=== PATIENT | female | born 1935 | race Caucasian/White ===

== ENCOUNTER 2017-03-16 11:24 | Emergency (ER) | payer OTHER, MEDICARE ==
[2017-03-16] MEDS ORDERED: ACETAMINOPHEN 325 MG TABLET PO ONE (11:43)
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
== END 2017-03-16 12:16 | disposition home or self-care (01) ==
LOC: ER 11:24
DX: S70.02XA Contusion of left hip, initial encounter (principal); V48.5XXA Car driver injured in noncollision transport accident in traffic accident, initial encounter; Y92.410 Unspecified street and highway as the place of occurrence of the external cause; I50.9 Heart failure, unspecified; Z79.899 Other long term (current) drug therapy; Z79.01 Long term (current) use of anticoagulants; Z74.3 Need for continuous supervision
CPT/HCPCS: 99283; A0425; A0429

== ENCOUNTER 2017-03-21 09:42 | Inpatient (IN) | payer OTHER, MEDICARE ==
[2017-03-21 10:24] LABS: BASOPHIL# 0.1 X 10^3uL (0.0-0.1); BASOPHILS 0.7 % (0.0-2.0); EOSINOPHILS 0.2 % (0.0-6.0); HEMATOCRIT 42.3 % (36.0-48.0); HEMOGLOBIN 13.8 g/dL (12.0-16.0); LYMPHOCYTES 12.5 % (20.0-40.0); LYMPHOCYTES# 1.2 X 10^3uL (0.8-3.8); MEAN CELL VOLUME 77.5 fL (80.0-100.0); MEAN CORPUS. HGB CONCENTRATION 32.5 g/dL (32.0-36.0); MEAN CORPUSCULAR HEMOGLOBIN 25.2 pg (29.0-35.0); MEAN PLATELET VOLUME 8.6 fL (7.4-10.4); MONOCYTES 6.9 % (2.0-10.0); MONOCYTES# 0.7 X 10^3uL (0.2-1.0); NEUTROPHILS 79.7 % (54.0-75.0); NEUTROPHILS# 7.8 X 10^3uL (2.6-6.7); PLATELET COUNT 241 X 10^3uL (130-440); RED BLOOD COUNT 5.46 X 10^6uL (4.20-6.10); WHITE BLOOD COUNT 9.8 X 10^3uL (3.9-10.7)
[2017-03-21 10:35] LABS: ALBUMIN 3.7 g/dL (3.5-5.0); ALKALINE PHOSPHATASE 118 U/L (38-126); ALT 26 U/L (9-52); AST 17 U/L (14-36); BILIRUBIN, TOTAL 0.7 mg/dL (0.2-1.3); BLOOD UREA NITROGEN 13 mg/dL (7-17); CALCIUM 9.7 mg/dL (8.4-10.2); CHLORIDE 107 mmol/L (98-107); GLUCOSE 117 mg/dL (70-100); POTASSIUM 3.2 mmol/L (3.5-5.1); SODIUM 144 mmol/L (137-145)
[2017-03-21 10:36] LABS: TOTAL PROTEIN 7.4 g/dL (6.3-8.2)
[2017-03-21 10:41] LABS: RED CELL DISTRIBUTION WIDTH 13.5 % (11.5-14.5)
[2017-03-21 10:42] LABS: INR 4.6
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
[2017-03-21] MEDS ORDERED: HOME MEDICATION LIST NEEDED 1 EA EACH MC ONE (10:54)
[2017-03-21] MEDS ORDERED: POTASSIUM CHLORIDE/NS 1,000 ML IV SCH (11:00)
[2017-03-21 11:21] LABS: URINE MUCUS NONE SEEN (Up to 25%); URINE RBC NONE SEEN (0-5/hpf); URINE SQUAMOUS EPITHELIAL CELL NONE SEEN (<= 15/hpf); URINE WBC NONE SEEN (0-4/hpf)
[2017-03-21 11:28] LABS: URINE APPEARANCE CLEAR; URINE COLOR DARK YELLOW
[2017-03-21 11:29] LABS: URINE BACTERIA <10 ORGANISMS/hpf (<10/hpf); URINE BILIRUBIN 1.0 mg/100ml (2+) (NEGATIVE); URINE BLOOD TRACE (NEGATIVE); URINE GLUCOSE NORMAL (NEGATIVE); URINE KETONE 100mg/dL (3+) (NEGATIVE); URINE LEUKOCYTE ESTERASE NEGATIVE (NEGATIVE); URINE NITRITE NEGATIVE (NEGATIVE); URINE PH 5.5 (5-7); URINE PROTEIN 30mg/dL (1+) (NEG - TRACE); URINE SPECIFIC GRAVITY > OR = 1.030 (0.001-1.035); URINE UROBILINOGEN 1mg/dL (Normal) (NEG-1mg/dL)
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
--- NOTE | 2017-03-21 11:37 | ER NURSING DOCUMENTATION ---
Nurse's Notes [facility] Name:Shannon Escobar Age:81 yrs Sex:Female :1935 Arrival Date:03/21/2017 Time:09:42 Bed4 Private MD:Paul Mendez Diagnosis:Hemarthrosis of Lower Leg;Hip Contusion;Difficulty Walking;Fecal Incontinence;Urinary Incontinence Presentation: 03/21 10:00 Acuity: REENA 3 lp 10:09 Presenting complaint: Patient states: Left hip and knee pain. Transition of care: Home. lp Notified ED Physician of Britton Whitehead notified. 10:09 Method Of Arrival: EMS: 410 lp Triage Assessment: 10:11 General: Appears in no apparent distress, Behavior is appropriate for age. Pain: lp Complains of pain in lateral aspect of left knee and posterior aspect of left knee. EENT: No deficits noted. Neuro: Level of Consciousness is awake, alert, Oriented to person, place, event, Weakness in left leg(s). Cardiovascular: Heart tones S1 S2. Respiratory: Airway is patent Trachea midline Respiratory effort is even, unlabored, Breath sounds are clear bilaterally. GI: Abdomen is obese. : incontinent. Derm: Skin is fragile, is thin, bruises to back of both hands from ems iv attempts. Musculoskeletal: Circulation, motion, and sensation intact Capillary refill < 3 seconds Range of motion limited in left hip Reports pain in left hip. Historical: - Allergies: Simvastatin; Lovastatin; Crestor; Lipitor; PENICILLINS; SULFA (SULFONAMIDES); TETANUS TOXOID; Premarin; contrast dye; - Home Meds: 1. PreserVision AREDS oral 2. Warfarin Oral 3. Metopirone oral 4. Diltiazem Oral - PMHx: CHF; macular degeneration; UTI; torsades; Hip Contusion (March 16, 2017); - Tetanus: < 10 years. - Ebola Screening: : Patient negative for fever greater than or equal to 101.5 degrees Fahrenheit, and additional compatible Ebola Virus Disease symptoms. Patient denies exposure to infectious person. Patient denies travel to an Ebola-affected area in the 21 days before illness onset. . - Immunization history: Pneumococcal vaccine is up to date, Flu Vaccine < 1 year. - Social history: Smoking status: Patient states former smoker of tobacco. Screenin:14 Infectious Disease Risk None. Abuse screen: Denies threats or abuse. Denies injuries lp from another. Nutritional screening: No deficits noted. Assessment: 10:14 See Triage Assessment done by same RN. lp Vital Signs: 09:45 BP 152 / 79; Pulse 86; Resp 16; Temp 97.6(TE); Pulse Ox 88% on R/A; Weight 61.23 kg; lp Height 5 ft. 6 in. (167.64 cm); Pain 4/10; 11:12 BP 125 / 69; Pulse 86; Resp 16; Pulse Ox 91% on 2 lpm NC; lp 11:34 BP 146 / 63; Pulse 78; Resp 16; Pulse Ox 93% on 2 lpm NC; lp 09:45 Body Mass Index 21.79 (61.23 kg, 167.64 cm) lp ED Course: 09:43 Patient arrived in ED. ds 09:43 Paul Mendez MD is Private Physician. ds 09:46 Bravo Jarquin MD is Attending Physician. charles 09:57 Iesha Manzanares RN is Primary Nurse. lp 10:00 Triage completed. lp 10:[address] Jarquin notified. lp 10:15 Valuables Remains with patient Patient has correct armband on for positive lp identification. Placed in gown. Bed in low position. Call light in reach. Side rails up X 1. 10:15 Inserted peripheral IV: 22 gauge in left forearm and blood collected. lp 10:[address] ms 10:39 Patient moved back from CT. ms 11:01 Paul Mendez MD is Admitting Physician. charles Administered Medications: 11:25 Drug: NS 0.9% 1000 ml; Route: IV; Rate: bolus; Site: left forearm; lp 11:35 Follow up: Response: No adverse reaction; No change in condition; IV Status: Infusion lp continued upon admission; IV Intake: 500ml Point of Care Testing: Urine Dip: 11:13 pH: 5.5; ; Specific [place]: 1.025; Ketones: Large; Glucose: Negative; Protein: rh Positive (+); Leukocytes: Negative; Nitrite: Negative ; Blood: Hemolyzed Trace; Bilirubin: Moderate (++) ; Urobilinogen: Normal Intake: 11:35 IV: 500ml; Total: 500ml. lp Outcome: 11:02 Decision to Admit by Provider. charles 11:35 Admitted to Med/surg accompanied by nurse. rigoberto 11:35 Condition: stable 11:35 Report given to Adela HOLLY 11:35 Instructed on follow up and referral plans. need to admit 11:36 Patient left the ED. rigoberto Signatures: Iesha Manzanares RN RN rigoberto Srot, Marisela, Reg Reg Bravo Lora MD MD jm Strickland, Mary ms Hofsess, Rachel
[2017-03-21] MEDS ORDERED: POTASSIUM CHLORIDE/NS 20 MEQ/1,000 ML BAG IV SCH (12:00)
[2017-03-21] MEDS ORDERED: POTASSIUM CHLORIDE ER 20 MEQ TABLET PO ONE (12:58)
--- NOTE | 2017-03-21 13:02 | RADIOLOGY REPORT ---
Three views of the left knee demonstrate no displaced fracture or dislocation. The visualized joints appear unremarkable. Scattered soft tissue arteriole vascular calcifications are noted. IMPRESSION: No displaced injury is identified. If clinically indicated, further evaluation and/or follow-up may be of benefit. PAULD
[2017-03-21] MEDS: ACETAMINOPHEN 325 MG TABLET PO PRN ×2 (13:36→21:49)
--- NOTE | 2017-03-21 13:41 | RADIOLOGY REPORT ---
Four views of the left femur demonstrate no displaced fracture or other bony abnormality. Limited views of the joints are unremarkable. IMPRESSION: No displaced injury is identified. If clinically indicated, further evaluation and/or follow-up may be of benefit. PAULD
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
[2017-03-21] MEDS: POTASSIUM CHLORIDE/NS 20 MEQ/1,000 ML BAG IV SCH ×2 (19:00→23:07)
[2017-03-21] MEDS: OCUVITE VIT C/E/ZINC/CU 1 CAP CAPSULE PO SCH (21:49)
[2017-03-21] MEDS: ATORVASTATIN CALCIUM 10 MG TABLET PO SCH (21:49)
[2017-03-22] MEDS: ACETAMINOPHEN 325 MG TABLET PO PRN ×2 (03:24→08:33)
[2017-03-22 06:08] LABS: BLOOD UREA NITROGEN 9 mg/dL (7-17); CALCIUM 8.8 mg/dL (8.4-10.2); CHLORIDE 111 mmol/L (98-107); GLUCOSE 115 mg/dL (70-100); POTASSIUM 3.8 mmol/L (3.5-5.1); SODIUM 141 mmol/L (137-145)
[2017-03-22 06:28] LABS: INR 4.6
[2017-03-22] MEDS: OCUVITE VIT C/E/ZINC/CU 1 CAP CAPSULE PO SCH ×2 (08:33→20:04)
[2017-03-22] MEDS: DILTIAZEM HCL CD 120 MG CAPSULE PO SCH (08:33)
--- NOTE | 2017-03-22 09:42 | PROGRESS NOTE: Orthopedics ---
Orthopedic PN Subjective - Subjective Principal Diagnosis: LLE pain Interval history: Pt still complains of thigh pain, but now complains more of LBP. Reports her back is what is limiting her mobility the most at this time. Ortho PN Objective Exam - Latest Vital Signs and I&O Latest Vital Signs/I&O: Vital Signs Temp 36.8 C 03/22/17 07:00 Pulse 74 03/22/17 07:00 Resp 20 03/22/17 07:00 BP 143/47 03/22/17 07:00 Pulse Ox 92 03/22/17 07:00 Intake & Output 03/21/17 03/22/17 03/22/17 17:59 05:59 17:59 Intake Total 680 Output Total 100 Balance 580 Weight 76.5 kg Intake: Oral 680 Output: Urine 100 Other: Urine Appearance Clear Urine Color Straw Stool Size Small Stool Characteristics Soft Liquid Voiding Method Indwelling Catheter # Bowel Movements 2 - Post-Operative Exam Additional Exam: Examination of her back reveals that she is nontender, and w/o deformity. I was able to observe her getting up with physical therapy, and she is able to weight- bear on her but appeared to be fairly unstable. She was able to get up from a sitting position as well As previously noted, she reports that thing that was limiting her the most was pain in her back. Physical examination of the lower extremities reveals that she has 4+/5 weakness in the left quadriceps She does have symmetric 5/5 strength tibialis anterior, EHL, and gastrocsoleus best as we could examine her in the sitting position. She does have sensation intact throughout. I was unable to elicit deep tendon reflex at the patellar tendons and Achilles tendons. Again she has no pain or tenderness hip area, specifically in the groin area. - Lab Labs: Laboratory Last Values WBC 9.8 X 10^3uL (3.9-10.7) 03/21/17 10:00 RBC 5.46 X 10^6uL (4.20-6.10) 03/21/17 10:00 Hgb 13.8 g/dL (12.0-16.0) 03/21/17 10:00 Hct 42.3 % (36.0-48.0) 03/21/17 10:00 MCV 77.5 fL (80.0-100.0) L 03/21/17 10:00 MCH 25.2 pg (29.0-35.0) L 03/21/17 10:00 MCHC 32.5 g/dL (32.0-36.0) 03/21/17 10:00 RDW 13.5 % (11.5-14.5) 03/21/17 10:00 Plt Count 241 X 10^3uL (130-440) 03/21/17 10:00 MPV 8.6 fL (7.4-10.4) 03/21/17 10:00 Neutrophils % 79.7 % (54.0-75.0) H 03/21/17 10:00 Lymphocytes % 12.5 % (20.0-40.0) L 03/21/17 10:00 Eosinophils % 0.2 % (0.0-6.0) 03/21/17 10:00 Basophils % 0.7 % (0.0-2.0) 03/21/17 10:00 Neutrophils # 7.8 X 10^3uL (2.6-6.7) H 03/21/17 10:00 Lymphocytes # 1.2 X 10^3uL (0.8-3.8) 03/21/17 10:00 Monocytes 6.9 % (2.0-10.0) 03/21/17 10:00 Monocytes # 0.7 X 10^3uL (0.2-1.0) 03/21/17 10:00 Eosinophils # 0.0 X 10^3uL (0.0-0.4) 03/21/17 10:00 Basophils # 0.1 X 10^3uL (0.0-0.1) 03/21/17 10:00 PT 51.8 sec (13.0-16.6) H 03/22/17 05:20 INR 4.6 03/22/17 05:20 Sodium 141 mmol/L (137-145) 03/22/17 05:20 Potassium 3.8 mmol/L (3.5-5.1) 03/22/17 05:20 Chloride 111 mmol/L (98-107) H 03/22/17 05:20 Carbon Dioxide 25 mmol/L (22-30) 03/22/17 05:20 BUN 9 mg/dL (7-17) 03/22/17 05:20 Creatinine 0.5 mg/dL (0.5-1.0) 03/22/17 05:20 GFR Calculation Not Reportable 03/22/17 05:20 Glucose 115 mg/dL (70-100) H 03/22/17 05:20 Calcium 8.8 mg/dL (8.4-10.2) 03/22/17 05:20 Total Bilirubin 0.7 mg/dL (0.2-1.3) 03/21/17 10:00 AST 17 U/L (14-36) 03/21/17 10:00 ALT 26 U/L (9-52) 03/21/17 10:00 Alkaline Phosphatase 118 U/L (38-126) 03/21/17 10:00 Total Protein 7.4 g/dL (6.3-8.2) 03/21/17 10:00 Albumin 3.7 g/dL (3.5-5.0) 03/21/17 10:00 Albumin/Globulin Ratio 1.0 03/21/17 10:00 Urine Color Dark yellow A 03/21/17 11:10 Urine Appearance Clear 03/21/17 11:10 Urine pH 5.5 (5-7) 03/21/17 11:10 Ur Specific [place] > or = 1.030 (0.001-1.035) 03/21/17 11:10 Urine Protein 30mg/dl (1+) (NEG - TRACE) A 03/21/17 11:10 Urine Ketones 100mg/dl (3+) (NEGATIVE) A 03/21/17 11:10 Urine Blood Trace (NEGATIVE) A 03/21/17 11:10 Urine Nitrate Negative (NEGATIVE) 03/21/17 11:10 Urine Bilirubin 1.0 mg/100ml (2+) (NEGATIVE) A 03/21/17 11:10 Urine Urobilinogen 1mg/dl (normal) (NEG-1mg/dL) 03/21/17 11:10 Ur Leukocyte Esterase Negative (NEGATIVE) 03/21/17 11:10 Urine RBC None seen (0-5/hpf) 03/21/17 11:10 Urine WBC None seen (0-4/hpf) 03/21/17 11:10 Ur Squamous Epith Cells None seen (<= 15/hpf) 03/21/17 11:10 Urine Bacteria <10 organisms/hpf (<10/hpf) 03/21/17 11:10 Urine Mucus None seen (Up to 25%) 03/21/17 11:10 Urine Glucose Normal (NEGATIVE) 03/21/17 11:10 Assessment and Plan-Ortho - Date of Encounter Date of Encounter: 03/22/17 (1) Left thigh pain Status: Acute Assessment and plan: Assessment: Persistent left thigh pain, with left lower ext She is now also complaining of low back pain. This comminution of symptoms could represent disc pathology at the L3-L4 level. Plan: We will go ahead and obtain plain radiographs of her lumbar spine. Depending on the findings, we will likely also obtain an MRI of the lumbar spine. In the meantime I do not see any contraindication to continued mobilization. Current Visit: Yes Quality Questions - VTE Prophylaxis Assessment VTE Present on Admission?: No Patient at risk for venous thromboembolism?: Yes VTE Risk Level: Very Low Risk Pharmaceutical VTE prophylaxis contraindication reason: not indicated Mechanical VTE prophylaxis contraindication reason: N/A- VTE prophylaxsis ordered
--- NOTE | 2017-03-22 13:01 | RADIOLOGY REPORT ---
Three views of the lumbar spine are compared with prior films dated 11/21/2013. 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 Deformity of L2 has progressed from 30% on the previous examination to approximately 50% on todays examination. No encroachment upon the spinal canal is identified. The L4 and L5 vertebral bodies are maintained in height. Disk spaces are stable. Again noted are findings consistent with an abdominal aortic aneurysm. The diameter measures approximately 5 cm. IMPRESSION: 1. 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 2. Progression of compression deformity of L2, which is now approximately 50%. 3. Approximately 5 cm abdominal aortic aneurysm. This could be more accurately assessed with ultrasound. The findings were personally reviewed with Dr. Lynn at 1050 hours on 03/22/2017. JEANNE
[2017-03-22] MEDS ORDERED: POTASSIUM CHLORIDE/NS 20 MEQ/1,000 ML BAG IV SCH (13:28)
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
[2017-03-22] MEDS: ACETAMINOPHEN 500 MG TABLET PO SCH ×2 (14:44→20:04)
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
[2017-03-22] MEDS: ATORVASTATIN CALCIUM 10 MG TABLET PO SCH (20:04)
[2017-03-23] MEDS: traMADol HCL 50 MG TABLET PO PRN ×2 (02:24→08:59)
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
[2017-03-23] MEDS: OCUVITE VIT C/E/ZINC/CU 1 CAP CAPSULE PO SCH ×2 (08:59→20:14)
[2017-03-23] MEDS: ACETAMINOPHEN 500 MG TABLET PO SCH ×3 (08:59→20:14)
[2017-03-23] MEDS: DILTIAZEM HCL CD 120 MG CAPSULE PO SCH (09:00)
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
[2017-03-23] MEDS: ATORVASTATIN CALCIUM 10 MG TABLET PO SCH (20:14)
[2017-03-24] MEDS: ACETAMINOPHEN 500 MG TABLET PO SCH ×3 (09:16→21:04)
[2017-03-24] MEDS: DILTIAZEM HCL CD 120 MG CAPSULE PO SCH (09:17)
[2017-03-24] MEDS: OCUVITE VIT C/E/ZINC/CU 1 CAP CAPSULE PO SCH ×2 (09:17→21:05)
[2017-03-24] MEDS: traMADol HCL 50 MG TABLET PO PRN (12:37)
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
[2017-03-24] MEDS: WARFARIN SODIUM 2 MG TABLET PO SCH (15:19)
[2017-03-24] MEDS: ATORVASTATIN CALCIUM 10 MG TABLET PO SCH (21:04)
[2017-03-25] MEDS ORDERED: LIDOCAINE 5% 1 PATCH PATCH TRANSDERM PRN (08:58)
[2017-03-25] MEDS ORDERED: ENOXAPARIN SODIUM 100 MG/ML SYR SUBCUT SCH (09:00)
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
[2017-03-25] MEDS ORDERED: NORMAL SALINE FLUSH 10 ML DISP.SYRIN IV PRN (09:06)
[2017-03-25] MEDS: OCUVITE VIT C/E/ZINC/CU 1 CAP CAPSULE PO SCH ×2 (09:58→20:20)
[2017-03-25] MEDS: DILTIAZEM HCL CD 120 MG CAPSULE PO SCH (09:58)
[2017-03-25] MEDS: CALCITONIN,SALMON 1 SPRAY BOTTLE NASAL SCH (09:59)
[2017-03-25] MEDS: ACETAMINOPHEN 500 MG TABLET PO SCH (10:08)
[2017-03-25] MEDS: ACETAMINOPHEN 325 MG TABLET PO SCH ×3 (10:27→20:20)
[2017-03-25] MEDS: ENOXAPARIN SODIUM 40 MG/0.4 ML SYR SUBCUT SCH (10:29)
[2017-03-25] MEDS: LIDOCAINE 5% 1 PATCH PATCH TRANSDERM SCH (10:30)
[2017-03-25] MEDS: WARFARIN SODIUM 2 MG TABLET PO SCH (15:15)
[2017-03-25] MEDS: traMADol HCL 50 MG TABLET PO PRN (17:38)
[2017-03-25] MEDS: ATORVASTATIN CALCIUM 10 MG TABLET PO SCH (20:20)
[2017-03-25] MEDS: REMOVE PATCH 1 PATCH PATCH TRANSDERM SCH (20:27)
[2017-03-26 06:50] LABS: INR 2.1
[2017-03-26 06:56] LABS: BASOPHIL# 0.1 X 10^3uL (0.0-0.1); BASOPHILS 0.6 % (0.0-2.0); EOSINOPHILS 1.3 % (0.0-6.0); EOSINOPHILS# 0.1 X 10^3uL (0.0-0.4); HEMATOCRIT 37.5 % (36.0-48.0); HEMOGLOBIN 11.9 g/dL (12.0-16.0); LYMPHOCYTES 16.6 % (20.0-40.0); LYMPHOCYTES# 1.6 X 10^3uL (0.8-3.8); MEAN CORPUS. HGB CONCENTRATION 31.6 g/dL (32.0-36.0); MEAN CORPUSCULAR HEMOGLOBIN 24.4 pg (29.0-35.0); MEAN PLATELET VOLUME 8.6 fL (7.4-10.4); MONOCYTES 6.3 % (2.0-10.0); MONOCYTES# 0.6 X 10^3uL (0.2-1.0); NEUTROPHILS 75.2 % (54.0-75.0); NEUTROPHILS# 7.5 X 10^3uL (2.6-6.7); PLATELET COUNT 283 X 10^3uL (130-440); RED BLOOD COUNT 4.86 X 10^6uL (4.20-6.10); WHITE BLOOD COUNT 9.9 X 10^3uL (3.9-10.7)
[2017-03-26 06:58] LABS: RED CELL DISTRIBUTION WIDTH 13.7 % (11.5-14.5)
[2017-03-26 07:10] LABS: ALBUMIN 3.4 g/dL (3.5-5.0); ALKALINE PHOSPHATASE 153 U/L (38-126); ALT 33 U/L (9-52); AST 25 U/L (14-36); BILIRUBIN, TOTAL 0.4 mg/dL (0.2-1.3); BLOOD UREA NITROGEN 8 mg/dL (7-17); CALCIUM 9.1 mg/dL (8.4-10.2); CHLORIDE 103 mmol/L (98-107); GLUCOSE 126 mg/dL (70-100); POTASSIUM 3.9 mmol/L (3.5-5.1); SODIUM 140 mmol/L (137-145); TOTAL PROTEIN 6.8 g/dL (6.3-8.2)
[2017-03-26] MEDS: ENOXAPARIN SODIUM 40 MG/0.4 ML SYR SUBCUT SCH (09:31)
[2017-03-26] MEDS: DILTIAZEM HCL CD 120 MG CAPSULE PO SCH (09:31)
[2017-03-26] MEDS: ACETAMINOPHEN 325 MG TABLET PO SCH ×3 (09:31→21:02)
[2017-03-26] MEDS: OCUVITE VIT C/E/ZINC/CU 1 CAP CAPSULE PO SCH ×2 (09:31→21:01)
[2017-03-26] MEDS: LIDOCAINE 5% 1 PATCH PATCH TRANSDERM SCH (09:31)
[2017-03-26] MEDS: CALCITONIN,SALMON 1 SPRAY BOTTLE NASAL SCH (09:32)
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
[2017-03-26] MEDS: WARFARIN SODIUM 2 MG TABLET PO SCH (16:04)
[2017-03-26 19:41] VITALS: PULSE 71; RESP 18
[2017-03-26] MEDS: ATORVASTATIN CALCIUM 10 MG TABLET PO SCH (21:02)
[2017-03-26] MEDS: REMOVE PATCH 1 PATCH PATCH TRANSDERM SCH (21:07)
[2017-03-27 06:32] VITALS: BP 138/75; TEMP 98.3
[2017-03-27] MEDS: OCUVITE VIT C/E/ZINC/CU 1 CAP CAPSULE PO SCH (10:06)
[2017-03-27] MEDS: ACETAMINOPHEN 325 MG TABLET PO SCH (10:06)
[2017-03-27] MEDS: LIDOCAINE 5% 1 PATCH PATCH TRANSDERM SCH (10:07)
[2017-03-27] MEDS: DILTIAZEM HCL CD 120 MG CAPSULE PO SCH (10:07)
[2017-03-27] MEDS: CALCITONIN,SALMON 1 SPRAY BOTTLE NASAL SCH (10:07)
[2017-03-27 10:58] VITALS: O2SAT 90
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
== END 2017-03-27 09:31 | DRG 552 ==
LOC: ER 09:42 → OBSVTOIN 11:30 → IN 11:30
PROVIDERS: ADMIT Family Medicine; ATTEND Family Medicine
DX: S32.029A Unspecified fracture of second lumbar vertebra, initial encounter for closed fracture (principal); M54.5 Low back pain; V48.5XXA Car driver injured in noncollision transport accident in traffic accident, initial encounter; R53.1 Weakness; I48.2 Chronic atrial fibrillation; I50.9 Heart failure, unspecified; I71.4 Abdominal aortic aneurysm, without rupture; R32 Unspecified urinary incontinence; R09.02 Hypoxemia; Z87.891 Personal history of nicotine dependence; E78.5 Hyperlipidemia, unspecified; F03.90 Unspecified dementia, unspecified severity, without behavioral disturbance, psychotic disturbance, mood disturbance, and anxiety; H35.30 Unspecified macular degeneration; L40.9 Psoriasis, unspecified; Z85.820 Personal history of malignant melanoma of skin; Z79.01 Long term (current) use of anticoagulants; Z74.3 Need for continuous supervision
CPT/HCPCS: 36415; 72100; 72131; 72192; 80048; 80053; 81001; 82270; 83630; 85025; 85610; 87188; 87493; 87899; 94760; 96365; 96366; 99285; A0425; A0429; J1650; J3480